=== PATIENT | female | born 1955 | race Caucasian/White ===

== ENCOUNTER 2019-05-25 14:46 | Inpatient (IN) | payer MEDICARE ==
[~2019-05-25] VITALS: Ht 152.4 cm; Wt 45.7 kg
[2019-05-29 13:27] VITALS: BP 104/69
== END 2019-05-29 16:50 | disposition home or self-care (01) | DRG 871 ==
LOC: ED 15:19 → EDIP 18:25 → 3NW 19:29
PROVIDERS: ADMIT Family Medicine; ATTEND Family Medicine
DX: A41.9 Sepsis, unspecified organism (principal); E43 Unspecified severe protein-calorie malnutrition; N13.30 Unspecified hydronephrosis; K57.20 Diverticulitis of large intestine with perforation and abscess without bleeding; N82.3 Fistula of vagina to large intestine; I10 Essential (primary) hypertension; F17.210 Nicotine dependence, cigarettes, uncomplicated; N73.9 Female pelvic inflammatory disease, unspecified
CPT/HCPCS: 36415; 74177; 80048; 80053; 81001; 83605; 83735; 84100; 85025; 87040; 87086; 96365; 96375; 99285; G0378; J2543; J3370; Q9967; J3475; J7121